=== PATIENT | male | born 1975 | race Two or more races ===

== ENCOUNTER 2021-07-03 15:34 | Inpatient (IN) | payer OTHER ==
[~2021-07-03] VITALS: Ht 190.5 cm; Wt 141.0 kg
[2021-07-03 16:32] LABS: Basophils # (auto) 0 10 ^3/uL (0-0.2); Basophils % (auto) 1.1 % (0.0-2.0); Eosinophils # (auto) 0.1 10 ^3/uL (0-0.8); Eosinophils % (auto) 1.8 % (0.0-7.0); Hemoglobin 13.4 g/dL (13.5-17.5); Lymphocytes # (auto) 1.5 10 ^3/uL (0.4-5.4); Lymphocytes % (auto) 34.2 % (10.0-50.0); Mean Corpuscular Hemoglobin 26.5 pg (28.0-32.0); Mean Corpuscular Hgb Conc. 32.8 g/dL (32.0-36.0); Mean Corpuscular Volume 80.8 fL (80.0-100.0); Monocytes # (auto) 0.3 10 ^3/uL (0-1.3); Monocytes % (auto) 6.8 % (0.0-12.0); Neutrophils # (auto) 2.5 10 ^3/uL (1.6-8.6); Neutrophils % (auto) 56.1 % (37.0-80.0); Red Blood Cells 5.07 10^6/uL (4.5-5.90); Red Cell Distribution Width 14.5 % (11.8-14.3); White Blood Cell 4.4 10^3/uL (4.4-10.8)
[2021-07-03 16:51] LABS: Chloride 109 mmol/L (98-107); Potassium 3.3 mmol/L (3.5-5.1); Sodium 139 mmol/L (136-145)
[2021-07-03 16:59] LABS: Alanine Aminotransferase 30 U/L (16-61); Albumin 3.7 g/dL (3.4-5.0); Alkaline Phosphatase 78 U/L (45-117); Anion Gap 5 (5-15); Aspartate Aminotransferase 29 U/L (15-37); BUN/Creatinine Ratio 7.2; Bilirubin, Total 0.4 mg/dL (0.2-1.0); Blood Urea Nitrogen 7 mg/dL (7-18); Calcium 9.1 mg/dL (8.5-10.1); Carbon Dioxide 25 mmol/L (21-32); GFR African American 106 mL/min; GFR Non-African American 88 mL/min; Glucose 79 mg/dL (74-106); Magnesium 2.2 mg/dL (1.6-2.6); Total Protein 7.9 g/dL (6.4-8.2)
[2021-07-03] MEDS ORDERED: POTASSIUM EFFERVESENT TAB 25 MEQ PO ONE (19:00)
[2021-07-03] MEDS ORDERED: HYDROmorphone HCL 2 MG/ML VL IV PRN (22:15)
[2021-07-03] MEDS ORDERED: MORPHINE SULFATE INJECTION 2 MG/ML SYRG IV PRN (22:15)
[2021-07-03] MEDS ORDERED: HYDROcodone-ACET 5/325MG TAB PO PRN (22:15)
[2021-07-03] MEDS ORDERED: NITROGLYCERIN 0.4 MG SL TAB SL PRN (22:15)
[2021-07-03] MEDS ORDERED: ONDANSETRON HCL 4 MG/2 ML VIAL IV PRN (22:15)
[2021-07-03 23:47] LABS: Hematocrit 41.9 % (41.0-53.0); Hemoglobin 13.9 g/dL (13.5-17.5); Mean Corpuscular Hemoglobin 26.3 pg (28.0-32.0); Mean Corpuscular Hgb Conc. 33.1 g/dL (32.0-36.0); Mean Corpuscular Volume 79.6 fL (80.0-100.0); Red Blood Cells 5.26 10^6/uL (4.5-5.90); Red Cell Distribution Width 14.5 % (11.8-14.3); White Blood Cell 6.1 10^3/uL (4.4-10.8)
[2021-07-03 23:50] LABS: Basophils % (manual) 0 (0.0-2.0); Blast Cells 0; Metamyelocytes % 0; Myelocytes % 0; Promyelocytes % 0; Reactive Lymphocytes 0
[2021-07-04] LABS: INR 1.05 (0.9-1.15); Partial Thromboplastin Time 24.4 sec (23.6-33.0)
[2021-07-04] MEDS ORDERED: HEPARIN SODIUM (PORCINE) 5000 UNITS/ML 1ML VIAL IV ONE (00:27)
[2021-07-04 00:36] LABS: Band Neutrophils % (manual) 3; Eosinophils % (manual) 1 (0-7); Lymphocytes % (manual) 35 (10.0-50.0); Monocytes % (manual) 5 (0-12)
[2021-07-04] MEDS: HEPARIN DRIP/D5W 100UNITS/ML 250 ML IV SCH ×2 (01:17→11:24)
[2021-07-04 09:00] VITALS: BP 156/86
[2021-07-04] MEDS: PANTOPRAZOLE 40 MG TAB PO SCH ×2 (10:00→22:01)
[2021-07-04 10:52] LABS: INR 1.1 (0.9-1.15)
[2021-07-04 15:08] VITALS: BP 123/76
[2021-07-04 18:38] LABS: INR 1.07 (0.9-1.15)
[2021-07-04 18:56] LABS: Partial Thromboplastin Time 98.6 sec (23.6-33.0)
[2021-07-04 20:17] LABS: Urine Bacteria NONE SEEN /hpf (None Seen); Urine Blood Negative /uL (Negative); Urine WBC <1 /hpf (0 - 3)
[2021-07-04 22:00] VITALS: BP 125/79
[2021-07-05] MEDS: HEPARIN DRIP/D5W 100UNITS/ML 250 ML IV SCH ×3 (00:10→21:15)
[2021-07-05 03:20] LABS: INR 1.07 (0.9-1.15)
[2021-07-05 03:23] LABS: Partial Thromboplastin Time 79.7 sec (23.6-33.0)
[2021-07-05 05:00] VITALS: BP 127/76
[2021-07-05] MEDS: ACETAMINOPHEN 325 MG TAB PO PRN (06:57)
[2021-07-05 07:25] LABS: Basophils # (auto) 0 10 ^3/uL (0-0.2); Eosinophils # (auto) 0.1 10 ^3/uL (0-0.8); Lymphocytes # (auto) 1.4 10 ^3/uL (0.4-5.4); Mean Corpuscular Hemoglobin 26.5 pg (28.0-32.0); Monocytes # (auto) 0.4 10 ^3/uL (0-1.3); Nucleated Red Blood Cells % 0.1 %
[2021-07-05 07:28] LABS: Basophils % (auto) 0.5 % (0.0-2.0); Hematocrit 37.7 % (41.0-53.0); Hemoglobin 12.7 g/dL (13.5-17.5); Mean Corpuscular Hgb Conc. 33.6 g/dL (32.0-36.0); Monocytes % (auto) 7.8 % (0.0-12.0); Neutrophils % (auto) 60.7 % (37.0-80.0); Red Blood Cells 4.78 10^6/uL (4.5-5.90); Red Cell Distribution Width 14.7 % (11.8-14.3)
[2021-07-05 09:00] VITALS: BP 156/75
[2021-07-05 10:17] LABS: INR 1.05 (0.9-1.15); Partial Thromboplastin Time 58.1 sec (23.6-33.0)
[2021-07-05] MEDS: PANTOPRAZOLE 40 MG TAB PO SCH ×2 (12:32→20:34)
[2021-07-05 13:00] VITALS: BP 155/99
[2021-07-05 17:00] VITALS: BP 156/106
[2021-07-05] MEDS ORDERED: hydrALAZINE HCL 20 MG/ML VL IV PRN (17:15)
[2021-07-05] MEDS ORDERED: LOSARTAN POTASSIUM 50 MG TAB PO ONE (17:15)
[2021-07-05 20:00] VITALS: BP 156/106
[2021-07-05 22:00] VITALS: BP 156/98
[2021-07-06 05:00] VITALS: BP 106/64
[2021-07-06 06:19] LABS: Basophils # (auto) 0.1 10 ^3/uL (0-0.2); Eosinophils # (auto) 0.2 10 ^3/uL (0-0.8); Hematocrit 41.8 % (41.0-53.0); Hemoglobin 13.8 g/dL (13.5-17.5); Lymphocytes # (auto) 1.9 10 ^3/uL (0.4-5.4); Lymphocytes % (auto) 36.1 % (10.0-50.0); Mean Corpuscular Hemoglobin 26.2 pg (28.0-32.0); Mean Corpuscular Hgb Conc. 33.1 g/dL (32.0-36.0); Mean Corpuscular Volume 79.2 fL (80.0-100.0); Monocytes # (auto) 0.4 10 ^3/uL (0-1.3); Monocytes % (auto) 8.3 % (0.0-12.0); Neutrophils # (auto) 2.7 10 ^3/uL (1.6-8.6); Neutrophils % (auto) 51.6 % (37.0-80.0); Nucleated Red Blood Cells % 0.1 %; Red Blood Cells 5.27 10^6/uL (4.5-5.90); Red Cell Distribution Width 14.9 % (11.8-14.3); White Blood Cell 5.2 10^3/uL (4.4-10.8)
[2021-07-06 06:32] LABS: INR 1.04 (0.9-1.15); Partial Thromboplastin Time 55.7 sec (23.6-33.0)
[2021-07-06 09:00] VITALS: BP 138/94
[2021-07-06] MEDS: HEPARIN DRIP/D5W 100UNITS/ML 250 ML IV SCH ×2 (09:15→23:30)
[2021-07-06] MEDS: LOSARTAN POTASSIUM 50 MG TAB PO SCH ×2 (10:00→21:43)
[2021-07-06] MEDS: PANTOPRAZOLE 40 MG TAB PO SCH ×2 (10:00→21:43)
[2021-07-06 13:00] VITALS: BP 127/75
[2021-07-06 13:03] LABS: INR 1.05 (0.9-1.15); Partial Thromboplastin Time 52.6 sec (23.6-33.0)
[2021-07-06 17:25] VITALS: BP 138/79
[2021-07-06] MEDS: ACETAMINOPHEN 325 MG TAB PO PRN (21:51)
[2021-07-06 22:00] VITALS: BP 133/79
[2021-07-07 05:00] VITALS: BP 104/60
[2021-07-07 08:21] LABS: INR 1.09 (0.9-1.15); Partial Thromboplastin Time 57.8 sec (23.6-33.0)
[2021-07-07 09:00] VITALS: BP 140/78
[2021-07-07] MEDS: LOSARTAN POTASSIUM 50 MG TAB PO SCH ×2 (09:22→22:30)
[2021-07-07] MEDS: PANTOPRAZOLE 40 MG TAB PO SCH ×2 (09:22→22:30)
[2021-07-07 13:00] VITALS: BP 120/69
[2021-07-07] MEDS: HEPARIN DRIP/D5W 100UNITS/ML 250 ML IV SCH (15:23)
[2021-07-07 17:18] VITALS: BP 126/66
[2021-07-07 23:23] VITALS: BP 128/76
[2021-07-08] MEDS: HEPARIN DRIP/D5W 100UNITS/ML 250 ML IV SCH ×2 (04:24→20:26)
[2021-07-08 05:01] VITALS: BP 106/64
[2021-07-08 05:39] LABS: INR 1.1 (0.9-1.15); Partial Thromboplastin Time 60.4 sec (23.6-33.0)
[2021-07-08 08:00] VITALS: BP 135/71
[2021-07-08] MEDS: PANTOPRAZOLE 40 MG TAB PO SCH ×2 (10:04→20:26)
[2021-07-08] MEDS: LOSARTAN POTASSIUM 50 MG TAB PO SCH ×2 (10:04→22:24)
[2021-07-08] MEDS: ACETAMINOPHEN 325 MG TAB PO PRN (10:05)
[2021-07-08 12:30] VITALS: BP 135/71
[2021-07-08 22:00] VITALS: BP 151/76
[2021-07-09 05:00] VITALS: BP 95/44
[2021-07-09 06:21] LABS: INR 1.07 (0.9-1.15); Partial Thromboplastin Time 58.2 sec (23.6-33.0)
[2021-07-09 09:00] VITALS: BP 153/88
[2021-07-09] MEDS: PANTOPRAZOLE 40 MG TAB PO SCH ×2 (10:01→20:56)
[2021-07-09] MEDS: LOSARTAN POTASSIUM 50 MG TAB PO SCH ×2 (10:01→21:02)
[2021-07-09] MEDS: ACETAMINOPHEN 325 MG TAB PO PRN (10:02)
[2021-07-09 13:18] VITALS: BP 121/69
[2021-07-09] MEDS: HEPARIN DRIP/D5W 100UNITS/ML 250 ML IV SCH (13:47)
[2021-07-09 16:58] VITALS: BP 141/73
[2021-07-09 22:00] VITALS: BP 130/76
[2021-07-10] MEDS: HEPARIN DRIP/D5W 100UNITS/ML 250 ML IV SCH (00:22)
[2021-07-10 05:00] VITALS: BP 112/60
[2021-07-10 07:11] LABS: Basophils # (auto) 0 10 ^3/uL (0-0.2); Basophils % (auto) 0.8 % (0.0-2.0); Eosinophils # (auto) 0.2 10 ^3/uL (0-0.8); Eosinophils % (auto) 3.7 % (0.0-7.0); Hematocrit 40.7 % (41.0-53.0); Hemoglobin 13.6 g/dL (13.5-17.5); Lymphocytes # (auto) 1.4 10 ^3/uL (0.4-5.4); Lymphocytes % (auto) 26.9 % (10.0-50.0); Mean Corpuscular Hemoglobin 27.1 pg (28.0-32.0); Mean Corpuscular Hgb Conc. 33.5 g/dL (32.0-36.0); Mean Corpuscular Volume 80.8 fL (80.0-100.0); Monocytes # (auto) 0.4 10 ^3/uL (0-1.3); Monocytes % (auto) 8.4 % (0.0-12.0); Neutrophils # (auto) 3.2 10 ^3/uL (1.6-8.6); Neutrophils % (auto) 60.2 % (37.0-80.0); Nucleated Red Blood Cells % 0.3 %; Red Blood Cells 5.03 10^6/uL (4.5-5.90); Red Cell Distribution Width 15.2 % (11.8-14.3); White Blood Cell 5.2 10^3/uL (4.4-10.8)
[2021-07-10 09:00] VITALS: BP 141/86
[2021-07-10] MEDS: LOSARTAN POTASSIUM 50 MG TAB PO SCH (09:44)
[2021-07-10] MEDS: PANTOPRAZOLE 40 MG TAB PO SCH (09:44)
[2021-07-10] MEDS: ACETAMINOPHEN 325 MG TAB PO PRN (09:51)
[2021-07-10] MEDS ORDERED: APIXABAN 5 MG TAB PO SCH (10:00)
[2021-07-10 13:00] VITALS: BP 110/66
[2021-07-10 15:53] VITALS: BP 110/66
[2021-07-17] MEDS ORDERED: APIXABAN 5 MG TAB PO SCH (10:00)
== END 2021-07-10 16:30 | DRG 301 ==
LOC: ER 15:34 → EEVIPCON 15:34 → OVERFLOW 22:15 → WEST WING 07-04 09:00
PROVIDERS: ADMIT Specialist; ATTEND Specialist
DX: I82.412 Acute embolism and thrombosis of left femoral vein (principal); E66.9 Obesity, unspecified; Z20.822 Contact with and (suspected) exposure to COVID-19; Z68.39 Body mass index [BMI] 39.0-39.9, adult; Z86.711 Personal history of pulmonary embolism
CPT/HCPCS: 36415; 71045; 80053; 81001; 83735; 83880; 84484; 85007; 85025; 85027; 85610; 85730; 87426; 93005; 93971; 96365; 96366; 96375; G0378

== ENCOUNTER 2021-12-28 19:44 | Emergency (ER) | payer OTHER ==
[~2021-12-28] VITALS: Ht 190.5 cm; Wt 142.9 kg
[2021-12-28] MEDS ORDERED: ONDANSETRON HCL 4 MG/2 ML VIAL IV ONE (20:15)
[2021-12-28] MEDS ORDERED: MORPHINE SULFATE 4 MG/ML SYR/VIAL IV ONE (20:15)
[2021-12-28 21:35] LABS: Basophils # (auto) 0 10 ^3/uL (0-0.2); Eosinophils # (auto) 0.1 10 ^3/uL (0-0.8); Hemoglobin 12.8 g/dL (13.5-17.5); Monocytes # (auto) 0.5 10 ^3/uL (0-1.3); Neutrophils % (auto) 65.9 % (37.0-80.0)
[2021-12-28 21:37] LABS: Eosinophils % (auto) 2.6 % (0.0-7.0); Hematocrit 38.5 % (41.0-53.0); Lymphocytes % (auto) 20.8 % (10.0-50.0); Mean Corpuscular Hemoglobin 26.7 pg (28.0-32.0); Mean Corpuscular Hgb Conc. 33.4 g/dL (32.0-36.0); Mean Corpuscular Volume 79.8 fL (80.0-100.0); Monocytes % (auto) 9.7 % (0.0-12.0); Neutrophils # (auto) 3.3 10 ^3/uL (1.6-8.6); Nucleated Red Blood Cells % 0.3 %; Red Blood Cells 4.82 10^6/uL (4.5-5.90); Red Cell Distribution Width 14.2 % (11.8-14.3)
[2021-12-28 21:47] LABS: INR 1.08 (0.9-1.15); Partial Thromboplastin Time 29.8 sec (23.6-33.0)
[2021-12-28 21:58] LABS: Albumin 3.8 g/dL (3.4-5.0); Calcium 9.2 mg/dL (8.5-10.1); Potassium 4.1 mmol/L (3.5-5.1)
[2021-12-28 22:01] LABS: BUN/Creatinine Ratio 7.3; Bilirubin, Total 0.3 mg/dL (0.2-1.0); Total Protein 7.9 g/dL (6.4-8.2)
[2021-12-28 22:30] VITALS: BP 116/67
== END 2021-12-28 23:02 ==
LOC: EDBD 19:44 → ER 19:54 → EEVIPCON 19:54 → ER 23:02
DX: R22.42 Localized swelling, mass and lump, left lower limb (principal); I10 Essential (primary) hypertension
CPT/HCPCS: 36415; 71045; 80053; 85025; 85379; 85610; 85652; 85730; 93971; 96374; 96375; 99285; J2270; J2405